=== PATIENT | male | born 1980 | race Caucasian/White ===

== ENCOUNTER 2020-10-25 06:20 | Emergency (ER) | payer MEDICAID, OTHER ==
--- NOTE | 2020-10-25 07:11 | EDM.PDOC ---
<Jh Whitmore Xavier - Last Filed: 10/25/20 07:47> ED HPI GENERAL MEDICAL PROBLEM - General Chief Complaint: Cardiovascular Problem Stated Complaint: HIGH BP Time Seen by Provider: 10/25/20 06:45 Source of Information: Reports: Patient History Limitations: Reports: No Limitations - History of Present Illness INITIAL COMMENTS - FREE TEXT/NARRATIVE: Mr. Goldstein is a pleasant 40-year-old gentleman who now presents the ED stating that he has had several months of dyspnea, but that it became worse last night. No orthopnea. He developed a cough this morning, productive of scant white sputum. He does not believe that he has been wheezing. He denies having recent chest pain or discomfort. He also reports feeling irregular palpitations last night, but he cannot say whether they were regularly irregular or irregularly irregular. He reports having a small amount of watery diarrhea, but no recent nausea or vomiting. No recent fever. He states that he checked his blood pressure 3 or 4 times last night, while he was feeling poorly, finding that it went up each time, up to 200/100. The patient reports that he has had swollen and erythematous legs for months, that have not changed recently. He states that he was prescribed an antibiotic at one point in the past, which did not help. The patient is a heavy smoker, currently at 2 packs/day, down from 3 packs/day. In addition, he acknowledges that he smokes marijuana "pretty much all the time". Here in the ED, the patient's initial BP is found to be modestly elevated 155/95 with tachycardia 112 bpm. He is afebrile, saturating 98% on room air. He appears to be in overall poor health, although is in no acute distress. Prior to last night, the patient denies having a recent fever, chills, sore throat, ear pain, nasal or sinus congestion, cough, chest pain, palpitations, nausea, vomiting, constipation, diarrhea, abdominal pain, urinary symptoms, recent weight gain or weight loss, recent bloody bowel movements or black bowel movements, recent joint aches, headaches, or rashes. The patient denies having been diagnosed with COVID-19 during this pandemic, but acknowledges that he has not received a COVID vaccine. The patient does not know the name of his PCP at [facility]. - Related Data Allergies Allergy/AdvReac Type Severity Reaction Status Date / Time No Known Allergies Allergy Verified 10/25/20 06:34 Home Meds: Home Meds cephALEXin [Keflex] 500 mg PO Q6H #40 cap 10/25/20 [Rx] Past Medical History HEENT History: Reports: Impaired Vision (wears glasses) Cardiovascular History: Reports: Hypertension (untreated) Respiratory History: Reports: Asthma (suspected, not PFT tested, untreated), Sleep Apnea (concompliant with CPAP) Gastrointestinal History: Reports: GERD (takes OTC meds prn) Musculoskeletal History: Reports: Fracture Neurological History: Reports: Neuropathy, Diabetic, Other (See Below) (Benign brain aneurysm) Psychiatric History: Reports: Addiction, Anxiety (untreated), Depression (untreated) Endocrine/Metabolic History: Reports: Diabetes, Type II (untreated), Obesity/BMI 30+ - Infectious Disease History Infectious Disease History: Reports: Chicken Pox Social & Family History - Tobacco Use Tobacco Use Status *Q: Current Every Day Tobacco User Years of Tobacco use: 27 Packs/Tins Daily: 2 Packs/Tins Daily Comment: Down from 3 ppd Tobacco Use Comment: Started smoking in 1993 - Caffeine Use Caffeine Use: Reports: Coffee, Energy Drinks - Alcohol Use Alcohol Use History: Yes Alcohol Use Frequency: Rarely - Recreational Drug Use Recreational Drug Use: Yes Drug Use in Last 12 Months: Yes Recreational Drug Type: Reports: Marijuana/Hashish ("pretty much all the time") - Living Situation & Occupation Living situation: Reports: Single, Alone Occupation: Unemployed ED ROS GENERAL - Review of Systems Review Of Systems: Comprehensive ROS is negative, except as noted in HPI. Musculoskeletal: Reports: Back Pain (chronic), Leg Pain (chronic) Neurological: Reports: Headache (chronic) ED EXAM, GENERAL - Physical Exam Exam: See Below Exam Limited By: No Limitations General Appearance: Alert, WD/WN, No Apparent Distress, Other (The patient appears to be in poor health) Eye Exam: Bilateral Eye: EOMI, Normal Inspection Ears: Normal External Exam, Hearing Grossly Normal Nose: Normal Inspection Throat/Mouth: Normal Inspection, Normal Lips, Normal Voice, No Airway Compromise Head: Atraumatic, Normocephalic Neck: Normal Inspection, Full Range of Motion Respiratory/Chest: No Respiratory Distress, Lungs Clear, Normal Breath Sounds, No Accessory Muscle Use, Stridor (slight). No: Decreased Breath Sounds, Crackles, Rhonchi, Wheezing, Prolonged Expiration Cardiovascular: Normal Peripheral Pulses, No Gallop, No JVD, No Murmur, No Rub, Tachycardia (regular) Peripheral Pulses: 3+: Radial (L), Radial (R) GI/Abdominal: Normal Bowel Sounds, Soft, Non-Tender, No Organomegaly, No Distention, No Abnormal Bruit, No Mass Back Exam: Normal Inspection, Full Range of Motion, NT Extremities: Normal Range of Motion, Normal Capillary Refill, Other (Brawny appearance and feel to the bilateral legs, with erythema. Minimal calor. Appearance most consistent with chronic venous stasis changes.) Neurological: Alert, Oriented, Normal Cognition, No Motor/Sensory Deficits Psychiatric: Normal Affect Skin Exam: Warm, Dry, Intact, Normal Color, No Rash #1 Interpretation EKG Date: 10/25/20 Time: 06:34 Rhythm: NSR Rate (Beats/Min): 94 [place]: Normal P-Wave: Enlarged (LAE) QRS: RBBB (incomplete) ST-T: Normal QT: Prolonged (QTc 482 ms) Comparison: No Change (12/17/2017) Course - Re-Assessments/Exams Free Text/Narrative Re-Assessment/Exam: 10/25/20 07:05 As above, the patient has had dyspnea for several months, which got worse last night, along with a cough productive of whitish sputum this morning. He is developed some irregular palpitations last night. He had slight watery diarrhea yesterday, but no other gastrointestinal symptoms. When he was feeling poorly, he checked his blood pressure 3 or 4 times, finding it to be elevated, however, here in the ED, his BP is 155/95, with tachycardia 112 bpm. On physical exam, the patient's lungs are clear, although he has slight stridor. He appears to have brawny edema with erythema likely due to chronic venous stasis changes. An ECG, obtained at triage, demonstrates a normal sinus rhythm with no ischemic changes. I have ordered an extensive work-up that includes numerous blood tests, a urinalysis, a urine drug screen, a swab for the SARS-CoV-2 virus, and a chest x-ray. 10/25/20 07:[address] Deleon, and care of the patient turned over to him at this time, for change of shift. Departure - Departure Disposition: Home, Self-Care 01 Clinical Impression: Peripheral edema Dyspnea Qualifiers: Dyspnea type: other forms of dyspnea Qualified Code(s): R06.09 - Other forms of dyspnea Cellulitis Qualifiers: Site of cellulitis: extremity Site of cellulitis of extremity: lower extremity Laterality: unspecified laterality Qualified Code(s): L03.119 - Cellulitis of unspecified part of limb - Discharge Information Prescriptions: cephALEXin [Keflex] 500 mg PO Q6H #40 cap Referrals: PCP,None [Primary Care Provider] - Forms: ED Department Discharge Additional Instructions: Take the keflex 4 times per day for 10 days. Put warm compresses on your legs a couple times per day for 5 days. Follow up with your provider within a week. Please return if you are worse. Sepsis Event Note (ED) - Evaluation Sepsis Screening Result: No Definite Risk <Ramos Deleon - Last Filed: 10/25/20 09:06> Course - Vital Signs Last Recorded V/S: Last Vital Signs Temp 97.4 F 10/25/20 06:31 Pulse 112 H 10/25/20 06:31 Resp 18 10/25/20 06:31 BP 155/95 H 10/25/20 06:31 Pulse Ox 98 10/25/20 06:31 - Orders/Labs/Meds Orders: Active Orders 24 hr Category Date Time Status EKG Documentation Completion [RC] STAT Care 10/25/20 06:46 Active Ang Chest [CT] Stat Exams 10/25/20 08:30 Stop Req Chest 2V [CR] Stat Exams 10/25/20 07:01 Taken Labs: Laboratory Tests 10/25/20 10/25/20 10/25/20 Range/Units 07:30 07:30 07:30 WBC 9.98 H (4.23-9.07) K/mm3 RBC 5.29 (4.63-6.08) M/mm3 Hgb 14.6 (13.7-17.5) gm/dl Hct 45.1 (40.1-51.0) % MCV 85.3 (79.0-92.2) fl MCH 27.6 (25.7-32.2) pg MCHC 32.4 (32.2-35.5) g/dl RDW Std Deviation 46.2 H (35.1-43.9) fL Plt Count 249 (163-337) K/mm3 MPV 9.3 L (9.4-12.3) fl Neutrophils % (Manual) 67 H (40-60) % Band Neutrophils % 2 (0-10) % Lymphocytes % (Manual) 22 (20-40) % Atypical Lymphs % 2 % Monocytes % (Manual) 2 (2-10) % Eosinophils % (Manual) 5 (0.8-7.0) % Basophils % (Manual) 0 L (0.2-1.2) Platelet Estimate Adequate Plt Morphology Comment Normal RBC Morph Comment Normal D-Dimer, Quantitative (0.19-0.50) mg/L Sodium 138 (136-145) mEq/L Potassium 3.6 (3.5-5.1) mEq/L Chloride 100 (98-107) mEq/L Carbon Dioxide 27 (21-32) mEq/L Anion Gap 14.6 (5-15) BUN 12 (7-18) mg/dL Creatinine 0.9 (0.7-1.3) mg/dL Est Cr Clr Drug Dosing 117.36 mL/min Estimated GFR (MDRD) > 60 (>60) mL/min BUN/Creatinine Ratio 13.3 L (14-18) Glucose 146 H (70-99) mg/dL Lactic Acid (0.4-2.0) mmol/L Calcium 8.8 (8.5-10.1) mg/dL Magnesium 1.8 (1.8-2.4) mg/dL Total Bilirubin 0.3 (0.2-1.0) mg/dL AST 12 L (15-37) U/L ALT 31 (16-63) U/L Alkaline Phosphatase 89 (46-116) U/L Troponin I < 0.017 (0.00-0.056) ng/mL C-Reactive Protein 3.7 H* (<1.0) mg/dL NT-Pro-B Natriuret Pep (0-125) pg/mL Total Protein 7.5 (6.4-8.2) g/dl Albumin 3.3 L (3.4-5.0) g/dl Globulin 4.2 gm/dL Albumin/Globulin Ratio 0.8 L (1-2) TSH 3rd Generation 3.868 H (0.358-3.74) uIU/mL Urine Color Yellow (Yellow) Urine Appearance Clear (Clear) Urine pH 7.0 (5.0-8.0) Ur Specific [place] 1.020 (1.005-1.030) Urine Protein Negative (Negative) Urine Glucose (UA) Negative (Negative) Urine Ketones Negative (Negative) Urine Occult Blood Negative (Negative) Urine Nitrite Negative (Negative) Urine Bilirubin Negative (Negative) Urine Urobilinogen 0.2 (0.2-1.0) Ur Leukocyte Esterase Negative (Negative) Urine RBC 0-5 (0-5) /hpf Urine WBC 5-10 H (0-5) /hpf Ur Epithelial Cells 0-5 (0-5) /hpf Urine Bacteria Not seen (FEW) /hpf Urine Mucus Not seen (FEW) /hpf Urine Opiates Screen (KBVFXK=883) Ur Buprenorphine Scrn (CUTOFF=10) Ur Oxycodone Screen (DMS3NN=566) Urine Methadone Screen (EGL0LJ=835) Ur Propoxyphene Screen (VWKYRS=531) Ur Barbiturates Screen (BRSKNE=124) Ur Tricyclics Screen (PPZIVV=129) Ur Phencyclidine Scrn (CUTOFF=25) Ur Amphetamine Screen (JZSOXL=414) U Methamphetamines Scrn (KAIMXC=790) U Benzodiazepines Scrn (SUEPQM=707) U Cocaine Metab Screen (BXGPSC=349) U Marijuana (THC) Screen (CUTOFF=50) Ketones (0.0-0.3) mM SARS-CoV-2 RNA (HONORIO) (NEGATIVE) 10/25/20 10/25/20 10/25/20 Range/Units 07:30 07:30 07:30 WBC (4.23-9.07) K/mm3 RBC (4.63-6.08) M/mm3 Hgb (13.7-17.5) gm/dl Hct (40.1-51.0) % MCV (79.0-92.2) fl MCH (25.7-32.2) pg MCHC (32.2-35.5) g/dl RDW Std Deviation (35.1-43.9) fL Plt Count (163-337) K/mm3 MPV (9.4-12.3) fl Neutrophils % (Manual) (40-60) % Band Neutrophils % (0-10) % Lymphocytes % (Manual) (20-40) % Atypical Lymphs % % Monocytes % (Manual) (2-10) % Eosinophils % (Manual) (0.8-7.0) % Basophils % (Manual) (0.2-1.2) Platelet Estimate Plt Morphology Comment RBC Morph Comment D-Dimer, Quantitative 0.93 H (0.19-0.50) mg/L Sodium (136-145) mEq/L Potassium (3.5-5.1) mEq/L Chloride (98-107) mEq/L Carbon Dioxide (21-32) mEq/L Anion Gap (5-15) BUN (7-18) mg/dL Creatinine (0.7-1.3) mg/dL Est Cr Clr Drug Dosing mL/min Estimated GFR (MDRD) (>60) mL/min BUN/Creatinine Ratio (14-18) Glucose (70-99) mg/dL Lactic Acid (0.4-2.0) mmol/L Calcium (8.5-10.1) mg/dL Magnesium (1.8-2.4) mg/dL Total Bilirubin (0.2-1.0) mg/dL AST (15-37) U/L ALT (16-63) U/L Alkaline Phosphatase (46-116) U/L Troponin I (0.00-0.056) ng/mL C-Reactive Protein (<1.0) mg/dL NT-Pro-B Natriuret Pep 88 (0-125) pg/mL Total Protein (6.4-8.2) g/dl Albumin (3.4-5.0) g/dl Globulin gm/dL Albumin/Globulin Ratio (1-2) TSH 3rd Generation (0.358-3.74) uIU/mL Urine Color (Yellow) Urine Appearance (Clear) Urine pH (5.0-8.0) Ur Specific [place] (1.005-1.030) Urine Protein (Negative) Urine Glucose (UA) (Negative) Urine Ketones (Negative) Urine Occult Blood (Negative) Urine Nitrite (Negative) Urine Bilirubin (Negative) Urine Urobilinogen (0.2-1.0) Ur Leukocyte Esterase (Negative) Urine RBC (0-5) /hpf Urine WBC (0-5) /hpf Ur Epithelial Cells (0-5) /hpf Urine Bacteria (FEW) /hpf Urine Mucus (FEW) /hpf Urine Opiates Screen Presumptive positive H (KJMTNW=981) Ur Buprenorphine Scrn Negative (CUTOFF=10) Ur Oxycodone Screen Negative (WTZ7IK=125) Urine Methadone Screen Negative (MRR6CT=875) Ur Propoxyphene Screen Negative (LGUFUL=327) Ur Barbiturates Screen Negative (RFOVLG=701) Ur Tricyclics Screen Negative (RJNOUX=847) Ur Phencyclidine Scrn Negative (CUTOFF=25) Ur Amphetamine Screen Presumptive positive H (EKRKHD=765) U Methamphetamines Scrn Presumptive positive H (WBJGKS=974) U Benzodiazepines Scrn Negative (FRATMX=176) U Cocaine Metab Screen Negative (ZFKKMF=821) U Marijuana (THC) Screen Presumptive positive H (CUTOFF=50) Ketones (0.0-0.3) mM SARS-CoV-2 RNA (HONORIO) (NEGATIVE) 10/25/20 10/25/20 10/25/20 Range/Units 07:30 07:30 07:30 WBC (4.23-9.07) K/mm3 RBC (4.63-6.08) M/mm3 Hgb (13.7-17.5) gm/dl Hct (40.1-51.0) % MCV (79.0-92.2) fl MCH (25.7-32.2) pg MCHC (32.2-35.5) g/dl RDW Std Deviation (35.1-43.9) fL Plt Count (163-337) K/mm3 MPV (9.4-12.3) fl Neutrophils % (Manual) (40-60) % Band Neutrophils % (0-10) % Lymphocytes % (Manual) (20-40) % Atypical Lymphs % % Monocytes % (Manual) (2-10) % Eosinophils % (Manual) (0.8-7.0) % Basophils % (Manual) (0.2-1.2) Platelet Estimate Plt Morphology Comment RBC Morph Comment D-Dimer, Quantitative (0.19-0.50) mg/L Sodium (136-145) mEq/L Potassium (3.5-5.1) mEq/L Chloride (98-107) mEq/L Carbon Dioxide (21-32) mEq/L Anion Gap (5-15) BUN (7-18) mg/dL Creatinine (0.7-1.3) mg/dL Est Cr Clr Drug Dosing mL/min Estimated GFR (MDRD) (>60) mL/min BUN/Creatinine Ratio (14-18) Glucose (70-99) mg/dL Lactic Acid 1.4 (0.4-2.0) mmol/L Calcium (8.5-10.1) mg/dL Magnesium (1.8-2.4) mg/dL Total Bilirubin (0.2-1.0) mg/dL AST (15-37) U/L ALT (16-63) U/L Alkaline Phosphatase (46-116) U/L Troponin I (0.00-0.056) ng/mL C-Reactive Protein (<1.0) mg/dL NT-Pro-B Natriuret Pep (0-125) pg/mL Total Protein (6.4-8.2) g/dl Albumin (3.4-5.0) g/dl Globulin gm/dL Albumin/Globulin Ratio (1-2) TSH 3rd Generation (0.358-3.74) uIU/mL Urine Color (Yellow) Urine Appearance (Clear) Urine pH (5.0-8.0) Ur Specific [place] (1.005-1.030) Urine Protein (Negative) Urine Glucose (UA) (Negative) Urine Ketones (Negative) Urine Occult Blood (Negative) Urine Nitrite (Negative) Urine Bilirubin (Negative) Urine Urobilinogen (0.2-1.0) Ur Leukocyte Esterase (Negative) Urine RBC (0-5) /hpf Urine WBC (0-5) /hpf Ur Epithelial Cells (0-5) /hpf Urine Bacteria (FEW) /hpf Urine Mucus (FEW) /hpf Urine Opiates Screen (IJKHYP=183) Ur Buprenorphine Scrn (CUTOFF=10) Ur Oxycodone Screen (IBP4NP=033) Urine Methadone Screen (ULK6AJ=624) Ur Propoxyphene Screen (UXJZSU=486) Ur Barbiturates Screen (OIAUYZ=195) Ur Tricyclics Screen (LEVLYE=436) Ur Phencyclidine Scrn (CUTOFF=25) Ur Amphetamine Screen (UEZDJC=001) U Methamphetamines Scrn (MPLGSB=617) U Benzodiazepines Scrn (VJFUWV=433) U Cocaine Metab Screen (XBAOHG=989) U Marijuana (THC) Screen (CUTOFF=50) Ketones 0.01 (0.0-0.3) mM SARS-CoV-2 RNA (HONORIO) Negative (NEGATIVE) - Re-Assessments/Exams Free Text/Narrative Re-Assessment/Exam: 10/25/20 08:53 His CXR looks good. His WBC was elevated at 9.98. His D-dimer is elevated at 0.93. His glucose is elevated at 146. His lactic acid is normal. His troponin is negative. His CRP is elevated at 3.7. His BNP is normal. His TSH was slightly elevated at 3.868. His UA shows no UTI. His UDS was positive for opiates, amphetamine, methamphetamines, and marijuana. His ketones are 0.01. His COVID 19 is negative. His D-dimer was elevated so I recommended a CT angio of his chest be done. The patient refused. I asked him if he has done meth before and he said no but he did take some phentermine for weight loss. He said he had this happen one other time with his annual giving officer and they sent it off for confirmation and it came back negative. I believe he may have cellulitis in his legs given the WBC and CRP. I will get him on some keflex. His BP did come down into the 120s. I will have him follow up with his provider. Departure - Departure Time of Disposition: 09:10 Condition: Good - Discharge Information *PRESCRIPTION DRUG MONITORING PROGRAM REVIEWED*: Not Applicable *COPY OF PRESCRIPTION DRUG MONITORING REPORT IN PATIENT DALI: Not Applicable Sepsis Event Note (ED) - Focused Exam Vital Signs: Vital Signs Temp Pulse Resp BP Pulse Ox 10/25/20 06:31 97.4 F 112 H 18 155/95 H 98 - My Orders Last 24 Hours: My Active Orders 10/25/20 08:30 Ang Chest [CT] Stat - Assessment/Plan Last 24 Hours: My Active Orders 10/25/20 08:30 Ang Chest [CT] Stat
--- NOTE | 2020-10-25 09:30 | CR ---
Chest: 2 views of the chest were obtained. Comparison: No prior chest imaging is available. Heart size and mediastinum are normal. Questionable mild bronchitis is noted on the right side. Lungs otherwise are clear with no acute findings of pneumonia. Scattered disc space narrowing and endplate spurring is noted within the spine. Impression: 1. Possible mild bronchitis. 2. Other findings which are chronic as noted above. Diagnostic code #2
== END 2020-10-25 09:13 | disposition home or self-care (01) ==
LOC: JD.ED 06:20
DX: R06.09 Other forms of dyspnea (principal); L03.119 Cellulitis of unspecified part of limb; L03.116 Cellulitis of left lower limb; L03.115 Cellulitis of right lower limb; F17.200 Nicotine dependence, unspecified, uncomplicated; I10 Essential (primary) hypertension; J45.909 Unspecified asthma, uncomplicated; E11.40 Type 2 diabetes mellitus with diabetic neuropathy, unspecified; E66.9 Obesity, unspecified; Z68.43 Body mass index [BMI] 50.0-59.9, adult; Z20.822 Contact with and (suspected) exposure to COVID-19
CPT/HCPCS: 36415; 71046; 71046-26; 80053; 80306; 81001; 82009; 83605; 83735; 83880; 84443; 84484; 85007; 85027; 85379; 86140; 93005; 93010; 99284; 99285-25; U0002

== ENCOUNTER 2020-12-01 07:44 | Emergency (ER) | payer MEDICAID ==
--- NOTE | 2020-12-01 08:09 | EDM.PDOC ---
ED HPI GENERAL MEDICAL PROBLEM - General Chief Complaint: Abdominal Pain Stated Complaint: [facility] Time Seen by Provider: 12/01/20 08:01 - History of Present Illness INITIAL COMMENTS - FREE TEXT/NARRATIVE: 40-year-old male presents the emergency room brought in by EMS with severe scrotal and right groin pain. Patient states he has had increasing swelling for the last couple of days but no significant discomfort and then today he had sudden very severe pain develop.. Patient denies any fevers or chills. Has had a hard time voiding states the urine just goes everywhere. Patient has never had problems like this in the past. Is never been diagnosed with a hernia in the past. Right Lower Groin Pain Score (Numeric/FACES): 10 - Related Data Allergies Allergy/AdvReac Type Severity Reaction Status Date / Time No Known Allergies Allergy Verified 12/01/20 07:50 Home Meds: Home Meds . [No Known Home Meds] 12/01/20 [History] Past Medical History - Past Health History Medical/Surgical History: Denies Medical/Surgical History HEENT History: Reports: Impaired Vision (wears glasses) Other HEENT History: wears glasses Cardiovascular History: Reports: Hypertension (untreated) Other Cardiovascular History: 2008 brain aneurysm. 1.6cm brain mass Respiratory History: Reports: Asthma (suspected, not PFT tested, untreated), Sleep Apnea (concompliant with CPAP) Other Respiratory History: pt states he's not on inhaler for asthma; preparing to be on cpap Gastrointestinal History: Reports: GERD (takes OTC meds prn) Genitourinary History: Reports: None Musculoskeletal History: Reports: Fracture Other Musculoskeletal History: chronic leg and back pain Neurological History: Reports: Neuropathy, Diabetic, Other (See Below) (Benign brain aneurysm) Other Neuro History: brain aneurysm, brain mass 1.6cm Psychiatric History: Reports: Addiction, Anxiety (untreated), Depression (untreated) Endocrine/Metabolic History: Reports: Diabetes, Type II (untreated), Obesity/BMI 30+ Dermatologic History: Reports: Cellulitis - Infectious Disease History Infectious Disease History: Reports: Chicken Pox - Past Surgical History HEENT Surgical History: Reports: None Cardiovascular Surgical History: Reports: None Respiratory Surgical History: Reports: None Endocrine Surgical History: Reports: None Neurological Surgical History: Reports: None Social & Family History - Family History Family Medical History: No Pertinent Family History Cardiac: Reports: Heart Failure Respiratory: Reports: Asthma Endocrine/Metabolic: Reports: Diabetes, type II Oncologic: Reports: Lung - Caffeine Use Caffeine Use: Reports: Coffee, Energy Drinks - Living Situation & Occupation Living situation: Reports: Single, Alone Occupation: Unemployed ED ROS GENERAL - Review of Systems Review Of Systems: See Below Constitutional: Reports: No Symptoms HEENT: Reports: No Symptoms Respiratory: Reports: No Symptoms Cardiovascular: Reports: No Symptoms GI/Abdominal: Reports: Abdominal Pain (Right lower abdomen) : Reports: Other (Difficulty voiding because of testicular swelling). Denies: Dysuria, Hematuria Musculoskeletal: Reports: No Symptoms Neurological: Reports: No Symptoms ED EXAM, GENERAL - Physical Exam Exam: See Below Exam Limited By: No Limitations General Appearance: Moderate Distress (From the pain), Obese Head: Atraumatic, Normocephalic Neck: Normal Inspection, Supple, Non-Tender, Full Range of Motion Respiratory/Chest: No Respiratory Distress, Lungs Clear, Normal Breath Sounds Cardiovascular: Regular Rate, Rhythm, No Edema, No Murmur GI/Abdominal: Soft, Other (Right inguinal discomfort with palpation). No: Guarding, Rigid, Rebound (Male) Exam: Other (Massive testicular swelling redness exquisitely tender seems to be worse on the left compared to the right) Back Exam: Normal Inspection. No: CVA Tenderness (L), CVA Tenderness (R) Extremities: Pedal Edema (Trace) Course - Vital Signs Last Recorded V/S: Last Vital Signs Temp 36.7 C 12/01/20 10:30 Pulse 113 H 12/01/20 10:30 Resp 26 H 12/01/20 10:30 BP 183/103 H 12/01/20 10:30 Pulse Ox 97 12/01/20 10:30 - Orders/Labs/Meds Orders: Active Orders 24 hr Category Date Time Status Insert Rao Catheter [Insert Urinary Catheter] [OM.PC] Care 12/01/20 10:45 Ordered Q24H BLOOD CULTURE [MREF] Stat Lab 12/01/20 09:01 Received BLOOD CULTURE [MREF] Stat Lab 12/01/20 09:18 Received CULTURE URINE [MREF] Stat Lab 12/01/20 09:50 Received Blood Culture x2 Reflex Set [OM.PC] Stat Oth 12/01/20 08:23 Ordered Labs: Laboratory Tests 07/12/01/20 12/01/20 Range/Units 08:10 08:10 08:40 WBC 19.15 H (4.23-9.07) K/mm3 RBC 5.28 (4.63-6.08) M/mm3 Hgb 14.7 (13.7-17.5) gm/dl Hct 44.6 (40.1-51.0) % MCV 84.5 (79.0-92.2) fl MCH 27.8 (25.7-32.2) pg MCHC 33.0 (32.2-35.5) g/dl RDW Std Deviation 45.2 H (35.1-43.9) fL Plt Count 283 (163-337) K/mm3 MPV 9.9 (9.4-12.3) fl Neut % (Auto) 83.4 H (34.0-67.9) % Lymph % (Auto) 7.5 L (21.8-53.1) % [place] % (Auto) 6.9 (5.3-12.2) % Eos % (Auto) 1.7 (0.8-7.0) Baso % (Auto) 0.2 (0.1-1.2) % Neut # (Auto) 15.98 H (1.78-5.38) K/mm3 Lymph # (Auto) 1.43 (1.32-3.57) K/mm3 [place] # (Auto) 1.33 H (0.30-0.82) K/mm3 Eos # (Auto) 0.32 (0.04-0.54) K/mm3 Baso # (Auto) 0.03 (0.01-0.08) K/mm3 Manual Slide Review Abnormal smear Sodium 138 (136-145) mEq/L Potassium 4.0 (3.5-5.1) mEq/L Chloride 100 (98-107) mEq/L Carbon Dioxide 30 (21-32) mEq/L Anion Gap 12.0 (5-15) BUN 9 (7-18) mg/dL Creatinine 0.9 (0.7-1.3) mg/dL Est Cr Clr Drug Dosing 117.36 mL/min Estimated GFR (MDRD) > 60 (>60) mL/min BUN/Creatinine Ratio 10.0 L (14-18) Glucose 146 H (70-99) mg/dL Lactic Acid (0.4-2.0) mmol/L Calcium 9.0 (8.5-10.1) mg/dL Total Bilirubin 0.4 (0.2-1.0) mg/dL AST 19 (15-37) U/L ALT 30 (16-63) U/L Alkaline Phosphatase 93 (46-116) U/L Total Protein 7.7 (6.4-8.2) g/dl Albumin 3.1 L (3.4-5.0) g/dl Globulin 4.6 gm/dL Albumin/Globulin Ratio 0.7 L (1-2) Urine Color (Yellow) Urine Appearance (Clear) Urine pH (5.0-8.0) Ur Specific [place] (1.005-1.030) Urine Protein (Negative) Urine Glucose (UA) (Negative) Urine Ketones (Negative) Urine Occult Blood (Negative) Urine Nitrite (Negative) Urine Bilirubin (Negative) Urine Urobilinogen (0.2-1.0) Ur Leukocyte Esterase (Negative) Urine RBC (0-5) /hpf Urine WBC (0-5) /hpf Ur Squamous Epith Cells (0-5) /hpf Urine Bacteria (FEW) /hpf Urine Mucus (FEW) /hpf SARS-CoV-2 RNA (HONORIO) Negative (NEGATIVE) 12/01/20 12/01/20 Range/Units 09:01 09:50 WBC (4.23-9.07) K/mm3 RBC (4.63-6.08) M/mm3 Hgb (13.7-17.5) gm/dl Hct (40.1-51.0) % MCV (79.0-92.2) fl MCH (25.7-32.2) pg MCHC (32.2-35.5) g/dl RDW Std Deviation (35.1-43.9) fL Plt Count (163-337) K/mm3 MPV (9.4-12.3) fl Neut % (Auto) (34.0-67.9) % Lymph % (Auto) (21.8-53.1) % [place] % (Auto) (5.3-12.2) % Eos % (Auto) (0.8-7.0) Baso % (Auto) (0.1-1.2) % Neut # (Auto) (1.78-5.38) K/mm3 Lymph # (Auto) (1.32-3.57) K/mm3 [place] # (Auto) (0.30-0.82) K/mm3 Eos # (Auto) (0.04-0.54) K/mm3 Baso # (Auto) (0.01-0.08) K/mm3 Manual Slide Review Sodium (136-145) mEq/L Potassium (3.5-5.1) mEq/L Chloride (98-107) mEq/L Carbon Dioxide (21-32) mEq/L Anion Gap (5-15) BUN (7-18) mg/dL Creatinine (0.7-1.3) mg/dL Est Cr Clr Drug Dosing mL/min Estimated GFR (MDRD) (>60) mL/min BUN/Creatinine Ratio (14-18) Glucose (70-99) mg/dL Lactic Acid 1.1 (0.4-2.0) mmol/L Calcium (8.5-10.1) mg/dL Total Bilirubin (0.2-1.0) mg/dL AST (15-37) U/L ALT (16-63) U/L Alkaline Phosphatase (46-116) U/L Total Protein (6.4-8.2) g/dl Albumin (3.4-5.0) g/dl Globulin gm/dL Albumin/Globulin Ratio (1-2) Urine Color Yellow (Yellow) Urine Appearance Slt cloudy H (Clear) Urine pH 8.5 H (5.0-8.0) Ur Specific [place] 1.020 (1.005-1.030) Urine Protein 1+ H (Negative) Urine Glucose (UA) Negative (Negative) Urine Ketones Negative (Negative) Urine Occult Blood Negative (Negative) Urine Nitrite Positive H (Negative) Urine Bilirubin Negative (Negative) Urine Urobilinogen 2.0 H (0.2-1.0) Ur Leukocyte Esterase 3+ H (Negative) Urine RBC Not seen (0-5) /hpf Urine WBC 20-30 H (0-5) /hpf Ur Squamous Epith Cells Not seen (0-5) /hpf Urine Bacteria Many H (FEW) /hpf Urine Mucus Few (FEW) /hpf SARS-CoV-2 RNA (HONORIO) (NEGATIVE) Meds: Medications Discontinued Medications Generic Name Dose Route Start Last Admin Trade Name Benjamin PRN Reason Stop Dose Admin Hydromorphone HCl 1 mg 12/01/20 08:19 12/01/20 08:25 Hydromorphone 1 Mg/Ml Syringe IVPUSH 12/01/20 08:20 1 mg ONETIME ONE Administration Lactated Ringer's 1,000 mls @ 150 mls/hr 12/01/20 08:45 12/01/20 08:50 Ringers, Lactated IV 150 mls/hr ASDIRECTED HENRI Administration Clindamycin Phosphate 900 mg/ 50 mls @ 100 mls/hr 12/01/20 08:47 12/01/20 10:32 Premix IV 12/01/20 09:16 100 mls/hr ONETIME ONE Administration Piperacillin Sod/Tazobactam 100 mls @ 200 mls/hr 12/01/20 08:48 12/01/20 09:25 Sod 4.5 gm/ Sodium Chloride IV 12/01/20 09:17 200 mls/hr ONETIME ONE Administration Iopamidol 50 ml 12/01/20 08:53 12/01/20 10:08 Iopamidol 755 Mg/Ml 50 Ml Bottle IVPUSH 12/01/20 08:54 50 ml ONETIME ONE Administration Iopamidol 100 ml 12/01/20 08:53 12/01/20 10:08 Iopamidol 755 Mg/Ml 100 Ml Bottle IVPUSH 12/01/20 08:54 100 ml ONETIME ONE Administration Lidocaine HCl 10 ml 12/01/20 09:50 12/01/20 09:50 Lidocaine 2% Jelly 10 Ml Urojet MUCMEM 12/01/20 09:51 10 ml ONETIME ONE Administration Ondansetron HCl 4 mg 12/01/20 08:20 12/01/20 08:27 Ondansetron 4 Mg/2 Ml Sdv IVPUSH 12/01/20 08:21 4 mg ONETIME ONE Administration Sodium Chloride 10 ml 12/01/20 08:53 12/01/20 10:08 Sodium Chloride 0.9% 10 Ml Syringe FLUSH 12/01/20 08:54 10 ml ONETIME ONE Administration - Re-Assessments/Exams Free Text/Narrative Re-Assessment/Exam: 12/01/20 08:[address] Moss, ER physician at [facility] in [place]. Dr. De Paz was in surgery and was not available to discuss patient's case. We will obtain labs cultures abdomen pelvis CT with IV contrast and then transferred to [facility] we can forward the results of the CT. Cultures were obtained we will start IV Zosyn and clindamycin. Departure - Departure Time of Disposition: 08:50 Disposition: DC/Tfer to [facility] 02 Clinical Impression: Jc's gangrene of scrotum - Discharge Information Referrals: PCP,None [Primary Care Provider] - Forms: ED Department Discharge Sepsis Event Note (ED) - Evaluation Sepsis Screening Result: No Definite Risk - Focused Exam Vital Signs: Vital Signs Temp Pulse Resp BP Pulse Ox 12/01/20 10:30 36.7 C 113 H 26 H 183/103 H 97 12/01/20 07:44 37.3 C 118 H 20 149/105 H 99 - My Orders Last 24 Hours: My Active Orders 12/01/20 08:23 Blood Culture x2 Reflex Set [OM.PC] Stat 12/01/20 09:01 BLOOD CULTURE [MREF] Stat 12/01/20 09:18 BLOOD CULTURE [MREF] Stat 12/01/20 09:50 CULTURE URINE [MREF] Stat 12/01/20 10:45 Insert Rao Catheter [Insert Urinary Catheter] [OM.PC] Q24H - Assessment/Plan Last 24 Hours: My Active Orders 12/01/20 08:23 Blood Culture x2 Reflex Set [OM.PC] Stat 12/01/20 09:01 BLOOD CULTURE [MREF] Stat 12/01/20 09:18 BLOOD CULTURE [MREF] Stat 12/01/20 09:50 CULTURE URINE [MREF] Stat 12/01/20 10:45 Insert Rao Catheter [Insert Urinary Catheter] [OM.PC] Q24H
[2020-12-01] MEDS ORDERED: HYDROmorphone 1 MG/ML Syringe IVPUSH ONE (08:19)
[2020-12-01] MEDS ORDERED: Ondansetron 4 MG/2 ML SDV IVPUSH ONE (08:20)
[2020-12-01] MEDS ORDERED: Lactated Ringers 1,000 ML IV SCH (08:45)
[2020-12-01] MEDS ORDERED: Clindamycin Phosphate in D5W 900 MG in Premix Bag 1 BAG IV ONE ×2 (08:47)
[2020-12-01] MEDS ORDERED: Piperacillin/Tazobactam 4.5 GM in Sodium Chloride 0.9% 100 ML IV ONE (08:48)
[2020-12-01] MEDS ORDERED: Iopamidol 755 Mg/ML 100 ML Bottle IVPUSH ONE (08:53)
[2020-12-01] MEDS ORDERED: Iopamidol 755 MG/ML 50 ML Bottle IVPUSH ONE (08:53)
[2020-12-01] MEDS ORDERED: Sodium Chloride 0.9% 10 ML Syringe FLUSH ONE (08:53)
[2020-12-01] MEDS ORDERED: Lidocaine 2% Jelly 10 ML Urojet MUCMEM ONE (09:50)
--- NOTE | 2020-12-01 10:35 | CT ---
CT abdomen and pelvis Technique: Multiple axial sections were obtained from above the dome of the diaphragm inferiorly through the pubic symphysis. Intravenous contrast was utilized. No oral contrast has been given. Delayed images were also obtained through the bladder. Reconstructed coronal and sagittal images were obtained. Comparison: No prior abdominal imaging is available. Findings: Visualized lung bases show mild bibasilar atelectasis. Fatty infiltration is noted within the liver. No focal abnormality is appreciated within the liver. Spleen size is normal. Adrenal gland on the right side shows slight nodular prominence of the adrenal aniket which is most likely incidental. Similar finding is noted on the left side. Pancreas is within normal limits. Gallbladder contains no calcified gallstones. Kidneys show symmetric contrast enhancement without hydronephrosis or mass. Abdominal aorta shows no aneurysm. No retroperitoneal adenopathy is seen. Appendix is seen which is normal. Rao catheter is noted within the bladder. Prominent bilateral hydroceles are seen within the scrotum. No additional scrotal abnormality is appreciated. Delayed images show contrast within the distal ureters and within the bladder. Bone window settings were reviewed which show diffuse disc space narrowing throughout the spine with diffuse endplate osteophytes. Impression: 1. Prominent bilateral hydroceles. 2. Diffuse degenerative change within the spine. 3. Fatty infiltration within the liver. 4. Rao catheter within the bladder. Other incidental findings as noted above. Diagnostic code #3
== END 2020-12-01 10:57 ==
LOC: JD.ED 07:44
DX: N49.3 Fournier gangrene (principal); I10 Essential (primary) hypertension; K21.9 Gastro-esophageal reflux disease without esophagitis; E11.40 Type 2 diabetes mellitus with diabetic neuropathy, unspecified; E66.9 Obesity, unspecified; Z68.42 Body mass index [BMI] 45.0-49.9, adult; Z20.822 Contact with and (suspected) exposure to COVID-19
CPT/HCPCS: 36415; 51702; 74177; 80053; 81001; 83605; 85025; 87040; 87086; 87088; 87186; 87635; 96365; 96367; 96375; 99285; J1170; J2405; J2543; J3490; J7120; Q9967; 99284; U0002

== ENCOUNTER 2021-04-23 12:35 | Emergency (ER) | payer MEDICAID ==
--- NOTE | 2021-04-23 13:48 | CR ---
Chest: Portable view of the chest was obtained. Comparison: Prior chest x-ray of 10/25/20. Heart size and mediastinum are normal. Small portion of the inferior lungs are not included on the exam. Lungs otherwise are clear. Bony structures show nothing acute. Impression: 1. Slightly limited chest x-ray. 2. Nothing acute is identified on portable chest x-ray. Diagnostic code #2
[2021-04-23] MEDS ORDERED: Ketorolac 60 MG/2 ML SDV IM ONE (13:55)
--- NOTE | 2021-04-23 14:02 | EDM.PDOC ---
ED HPI GENERAL MEDICAL PROBLEM - General Chief Complaint: Respiratory Problem Stated Complaint: RIB PAIN Time Seen by Provider: 04/23/21 12:52 Source of Information: Reports: Patient History Limitations: Reports: No Limitations - History of Present Illness INITIAL COMMENTS - FREE TEXT/NARRATIVE: 40-year-old male presents the emergency department today with complaints of pain noted to his right posterior rib area after having a coughing spell yesterday. Patient is a morbidly obese male. Tells me that he smokes 1 pack of cigarettes daily. Vapes several times daily. States that up to 1 month ago he was smoking marijuana several times daily. Currently has a drug patch to his right arm. States that yesterday he had a coughing spell and developed severe pain to his right posterior rib area after the coughing spell. Denies any recent fever, chills, nausea, vomiting or diarrhea. Tells me he has a chronic cough due to smoking. Denies any significant past medical history however he states that he was diabetic and on medications however he has lost weight and his provider told him that he no longer needs to take his medications anymore. States he has not taken any Tylenol or ibuprofen due to discomfort in his rib area. Right Thoracic Pain Score (Numeric/FACES): 10 - Related Data Allergies Allergy/AdvReac Type Severity Reaction Status Date / Time No Known Allergies Allergy Verified 04/23/21 12:59 Home Meds: Home Meds . [No Known Home Meds] 12/01/20 [History] Past Medical History - Past Health History Medical/Surgical History: Denies Medical/Surgical History HEENT History: Reports: Impaired Vision Other HEENT History: wears glasses Cardiovascular History: Reports: Hypertension Other Cardiovascular History: 2008 brain aneurysm. 1.6cm brain mass Respiratory History: Reports: Asthma, Sleep Apnea Other Respiratory History: pt states he's not on inhaler for asthma; preparing to be on cpap Gastrointestinal History: Reports: GERD Genitourinary History: Reports: None Musculoskeletal History: Reports: Fracture Other Musculoskeletal History: chronic leg and back pain Neurological History: Reports: Neuropathy, Diabetic, Other (See Below) Other Neuro History: brain aneurysm, brain mass 1.6cm Psychiatric History: Reports: Addiction, Anxiety, Depression Endocrine/Metabolic History: Reports: Diabetes, Type II, Obesity/BMI 30+ Dermatologic History: Reports: Cellulitis - Infectious Disease History Infectious Disease History: Reports: Chicken Pox, Measles, Mumps - Past Surgical History HEENT Surgical History: Reports: None Cardiovascular Surgical History: Reports: None Respiratory Surgical History: Reports: None Endocrine Surgical History: Reports: None Neurological Surgical History: Reports: None Social & Family History - Family History Family Medical History: No Pertinent Family History Cardiac: Reports: Heart Failure Respiratory: Reports: Asthma Endocrine/Metabolic: Reports: Diabetes, type II Oncologic: Reports: Lung - Tobacco Use Tobacco Use Status *Q: Current Every Day Tobacco User Years of Tobacco use: 22 Packs/Tins Daily: 1 - Caffeine Use Caffeine Use: Reports: Energy Drinks, Soda - Recreational Drug Use Recreational Drug Type: Reports: Marijuana/Hashish - Living Situation & Occupation Living situation: Reports: Single, Alone Occupation: Unemployed ED ROS GENERAL - Review of Systems Review Of Systems: Comprehensive ROS is negative, except as noted in HPI. ED EXAM, GENERAL - Physical Exam Exam: See Below Exam Limited By: No Limitations General Appearance: Alert, WD/WN, No Apparent Distress Ears: Normal External Exam, Hearing Grossly Normal Nose: Normal Inspection Throat/Mouth: Normal Inspection, Normal Lips, Normal Voice, No Airway Compromise Head: Atraumatic, Normocephalic Neck: Normal Inspection, Supple Respiratory/Chest: No Respiratory Distress, Lungs Clear, No Accessory Muscle Use, Chest Non-Tender, Decreased Breath Sounds (Due to body habitus), Other (Tenderness noted to right posterior lower rib area) Cardiovascular: Normal Peripheral Pulses, Regular Rate, Rhythm, No Edema, No Murmur GI/Abdominal: Normal Bowel Sounds, Soft, Non-Tender, No Distention (Male) Exam: Deferred Rectal (Males) Exam: Deferred Back Exam: Normal Inspection, Full Range of Motion Extremities: Normal Inspection, Normal Range of Motion, Non-Tender, No Pedal Edema, Normal Capillary Refill Neurological: Alert, Oriented, Normal Cognition Psychiatric: Normal Affect, Normal Mood Skin Exam: Warm, Dry, Intact, Normal Color, No Rash Lymphatic: No Adenopathy Course - Vital Signs Text/Narrative:: Stated above, patient presents with right posterior rib discomfort after coughing spell that occurred yesterday. Physical exam is essentially unremarkable. Lung sounds are diminished likely due to patient's body habitus. Patient does have increased pain noted when palpating right lower posterior rib area. Remainder of exam is essentially unremarkable. O2 saturations are 97% on room air. Will obtain a Covid swab on the patient as well as a chest x-ray. Give the patient Toradol 60 mg IM x1 dose. Last Recorded V/S: Last Vital Signs Temp 98.2 F 04/23/21 12:50 Pulse 95 04/23/21 12:50 Resp 20 04/23/21 12:50 BP 139/85 04/23/21 12:50 Pulse Ox 97 04/23/21 12:50 - Orders/Labs/Meds Orders: Active Orders 24 hr Category Date Time Status CORONAVIRUS COVID-19 HONORIO [MOLEC] Stat Lab 04/23/21 13:10 Received Meds: Medications Discontinued Medications Generic Name Dose Route Start Last Admin Trade Name Freq PRN Reason Stop Dose Admin Ketorolac Tromethamine 60 mg 04/23/21 13:55 Ketorolac 60 Mg/2 Ml Sdv IM 04/23/21 13:56 ONETIME ONE - Re-Assessments/Exams Free Text/Narrative Re-Assessment/Exam: 04/23/21 13:57 Radiologist impression portable view of the chest: Heart size and mediastinum are normal. Small portion of the inferior lungs are not included on exam. Lungs otherwise are clear. Bony structures show nothing acute. Impression: 1. Slightly limited chest x-ray. 2. Nothing acute is identified on portable chest x-ray. 04/23/21 14:03 Patient's Covid test is negative I have ordered for him to receive IM Toradol. He will be discharged home with recommendations that he stop smoking, vaping and smoking marijuana. He can take Tylenol every 4 hours as needed for the discomfort or ibuprofen every 6-8 hours as needed for discomfort. Recommend catrina t he follow-up with his primary care provider in about a week if not better. Departure - Departure Time of Disposition: 14:08 Disposition: Home, Self-Care 01 Condition: Good Clinical Impression: Rib pain on right side - Discharge Information Instructions: Pain Medicine Instructions, [id number] Referrals: Melissa Pang NP [Primary Care Provider] - Additional Instructions: You were seen in the emergency department today due to pain noted in your right rib area along your back. Covid swab was completed and this is negative. Chest x-ray was completed and does not show any broken ribs or displaced ribs. Pain you are experiencing is likely due to pulled muscle noted in your rib area. There is also a moderate amount of nerves that run in between your ribs so causes a significant amount of pain. You were given an IM shot of pain medication while in the emergency department. This will likely take time to resolve as any muscle strain does. Recommend taking Tylenol 650 mg alternating with ibuprofen 600 mg every 4 hours for the next couple of days. May use ice or heat for comfort. If you are not better in about 1 week time, recommend that you follow-up with your primary care provider for reevaluation. Sepsis Event Note (ED) - Evaluation Sepsis Screening Result: No Definite Risk - Focused Exam Vital Signs: Vital Signs Temp Pulse Resp BP Pulse Ox 04/23/21 12:50 98.2 F 95 20 139/85 97 - My Orders Last 24 Hours: My Active Orders 04/23/21 13:10 CORONAVIRUS COVID-19 HONORIO [MOLEC] Stat - Assessment/Plan Last 24 Hours: My Active Orders 04/23/21 13:10 CORONAVIRUS COVID-19 HONORIO [MOLEC] Stat
== END 2021-04-23 14:25 | disposition home or self-care (01) ==
LOC: JD.ED 12:35
DX: R07.81 Pleurodynia (principal); I10 Essential (primary) hypertension; E11.9 Type 2 diabetes mellitus without complications; E66.01 Morbid (severe) obesity due to excess calories; F17.210 Nicotine dependence, cigarettes, uncomplicated; Z68.43 Body mass index [BMI] 50.0-59.9, adult; Z20.822 Contact with and (suspected) exposure to COVID-19
CPT/HCPCS: 71045; 87635; 96372; 99283; J1885; U0002

== ENCOUNTER 2025-01-25 06:10 | Day surgery (SDC) | payer MEDICAID ==
[2025-01-25] MEDS ORDERED: Propofol 200 MG/20 ML SDV ONE (06:40)
[2025-01-25] MEDS: Lactated Ringers 1,000 ML IV SCH (07:00)
== END 2025-01-25 08:15 | disposition home or self-care (01) ==
LOC: JD.SDS 06:10
PROVIDERS: ATTEND Surgery
DX: Z12.11 Encounter for screening for malignant neoplasm of colon (principal); K57.30 Diverticulosis of large intestine without perforation or abscess without bleeding; I10 Essential (primary) hypertension; E11.9 Type 2 diabetes mellitus without complications; E66.9 Obesity, unspecified; E78.5 Hyperlipidemia, unspecified; Z68.41 Body mass index [BMI] 40.0-44.9, adult; Z87.891 Personal history of nicotine dependence; Z79.899 Other long term (current) drug therapy
CPT/HCPCS: 45378; J2704; J7120; 00812